=== PATIENT | female | born 1950 | race Caucasian/White ===

== ENCOUNTER 2022-12-05 07:19 | Inpatient (IN) ==
[2022-12-05] MEDS ORDERED: cefTRIAXone SODIUM 2,000 MG/70 ML BAG IV STA (07:32)
[2022-12-05] MEDS ORDERED: SODIUM CHLORIDE 0.9% 1000ML 2,000 ML IV ONE (07:32)
--- NOTE | 2022-12-05 07:37 | Emergency Department Note ---
I had nothing to do with this document. I opened it so that I could read the ED doc's note. Impression & Plan Sepsis, Complicated UTI (urinary tract infection), Pyelonephritis, Transaminitis, Hypoxia ED Provider Note NAME: VICENTE CHACON AGE: 72 SEX: F : 1950 ARRIVES VIA: Ambulance INFORMANT: Patient, weak ED PROVIDER(S): Scott Orozco DO CHIEF COMPLAINT: Not feeling well HPI: Patient is a 72-year-old female who presents to the ER for not feeling well. She notes her symptoms started early Friday morning with shaking chills. She notes that she feels very cold. She denies any headache or change in vision. She does not feel like she can keep warm. She denies chest pain or shortness of breath. No belly pain, nausea, or vomiting. She denies any dysuria, urgency, or frequency. No tick bites. No open wounds. She notes that she was slightly concerned that she may have carbon monoxide poisoning from Friday. Patient notes that she can barely get up as she is so weak. She has not checked her temperature. She has not been able to get to the shower and notes she has not bathed for couple days. PAST MEDICAL HISTORY:See Below PAST SURGICAL HISTORY:See Below FAMILY HISTORY:See Below SOCIAL HISTORY:See Below HOME MEDICATIONS:See Below ALLERGIES:See Below VITALS:See Below PHYSICAL EXAMINATION: GENERAL: Sitting up in bed, alert, well appearing, well nourished, no distress, non-toxic EYE EXAM: normal conjunctiva. OROPHARYNX:mucous membranes are moist NECK: supple, no nuchal rigidity, no adenopathy, non-tender LUNGS: Clear to auscultation. Normal chest wall mechanics HEART: no murmurs, S1 normal and S2 normal ABDOMEN: abdomen soft, non-tender, normo-active bowel sounds, no masses, no rebound or guarding. SKIN: no rashes and no bruising UPPER EXTREMITIES: upper extremities are grossly normal. LOWER EXTREMITIES: No pitting edema. NEURO EXAM: Normal sensorium, cranial nerves II-XII grossly intact, normal speech, no gross weakness of arms, no gross weakness of legs. MEDICAL DECISION MAKING: Patient is a 72-year-old female who presents ER for above-stated complaint. IV was established blood work was obtained. Labs show no significant leukocytosis. Mild anemia 11.1. INR unremarkable. BMP with mild hyponatremia. T. bili slightly up at 1.1 with a mild transaminitis in the 150s. Troponin was mildly elevated 18. UA was positive for nitrites leuks whites. Patient was given IV Rocephin as well as IV fluids 2 L. She was hypoxic in range remained on nasal cannula throughout her stay in the ER. Patient was updated bedside discussed with the hospitalist admitted for further work-up of her pyelonephritis likely causing her sepsis. Triage Nursing notes reviewed. Limited review of prior medical records performed Vital Signs: reviewed and remarkable for febrile and tachycardic Differential diagnosis: Differential diagnosis includes etiologies such as sepsis, UTI, pneumonia, m etabolic, electrolyte abnormalities, cardiac sources, intracerebral event, toxicologic, neurological, as well as others were entertained. ER treatment provided: See below Diagnostics interpreted by me include EKG and cardiac monitoring as listed below: -Cardiac Monitoring: An order was placed for continuous cardiac monitoring. The monitor shows a rate of 114 with sinus rhythm. -ECG: Sinus tachycardia rate of 110 Normal axis No PVCs QTc 441 -Laboratory studies:Interpreted by me as stated above in MDM and shown below. Imaging studies: Xrays: As interpreted by me: Portable AP upright 1 view of the chest shows atelectasis in the lower lungs CTs show: none Consultation(s): As described in [facility] Procedures:none Critical Care: I have personally spent 35 minutes of critical care time in the direct management of this patient. This includes bedside care, interpretation of diagnostic studies, and testing, discussion with consultants, patient, and family members, and other required patient management activities. This 35 minutes is in excess of all separately billable procedures. Past Med/Surg History Medical History (Updated 12/05/22 @ 13:09 by Scott Orozco DO) Diabetes mellitus, type II Dyslipidemia History of skin cancer HTN (hypertension) Surgical History (Updated 12/05/22 @ 10:24 by Miranda Coronado PA-C) H/O foot surgery H/O: hysterectomy Family History (Updated 12/05/22 @ 10:37 by Miranda Coronado PA-C) Other Diabetes Ovarian cancer Thyroid cancer Social History Smoking Status: Never smoker Hx Alcohol Use: No Hx Substance Use: No Feels Safe at Home: Yes Allergies Allergies Allergy/AdvReac Type Severity Reaction Status Date / Time No Known Allergies Allergy Unverified 12/05/22 11:44 Results & Data (ED) Vital Signs Vital Signs - 24 hr 12/05/22 07:33 12/05/22 07:20 12/05/22 08:03 Temperature 38.3 C H Temperature Source Oral Pulse Rate 110 H 110 H Pulse Rate [Apical] 108 H Respiratory Rate 14 18 Respiratory Effort / Characteristics Non-Labored Respiratory Depth Normal Blood Pressure 153/73 H Blood Pressure [Left Arm] Blood Pressure Mean 99 Blood Pressure Mean [Left Arm] Pulse Oximetry 91 88 L Oxygen Delivery Method Room Air Room Air Oxygen Flow Rate Sepsis Recent Fever Within 48 Hours Yes Sepsis New/Unexplained Change in Mental Status N/A Sepsis Action Taken by Nursing Physician Notified Oxygen Flow Rate - Titration Pulse Oximetry Post Tiitration 12/05/22 08:05 12/05/22 07:20 12/05/22 08:12 Temperature Temperature Source Pulse Rate 110 H Pulse Rate [Apical] 105 H Respiratory Rate 18 14 Respiratory Effort / Characteristics Respiratory Depth Blood Pressure Blood Pressure [Left Arm] Blood Pressure Mean Blood Pressure Mean [Left Arm] Pulse Oximetry 92 91 88 L Oxygen Delivery Method Nasal Cannula Room Air Nasal Cannula Oxygen Flow Rate Sepsis Recent Fever Within 48 Hours Sepsis New/Unexplained Change in Mental Status Sepsis Action Taken by Nursing Oxygen Flow Rate - Titration 2 Pulse Oximetry Post Tiitration 98 12/05/22 08:35 12/05/22 09:46 12/05/22 10:23 Temperature 38.0 C H Temperature Source Oral Pulse Rate Pulse Rate [Apical] 104 H 102 H 94 H Respiratory Rate 24 26 H 24 Respiratory Effort / Characteristics Non-Labored Non-Labored Respiratory Depth Normal Normal Blood Pressure Blood Pressure [Left Arm] 153/71 H 144/89 H 135/69 Blood Pressure Mean Blood Pressure Mean [Left Arm] 98 107 91 Pulse Oximetry 98 92 98 Oxygen Delivery Method Nasal Cannula Room Air Room Air Oxygen Flow Rate 2 Sepsis Recent Fever Within 48 Hours Sepsis New/Unexplained Change in Mental Status Sepsis Action Taken by Nursing Oxygen Flow Rate - Titration Pulse Oximetry Post Tiitration 12/05/22 11:15 12/05/22 12:00 Temperature 37.1 C Temperature Source Oral Pulse Rate Pulse Rate [Apical] 101 H 95 H Respiratory Rate 18 18 Respiratory Effort / Characteristics Non-Labored Non-Labored Respiratory Depth Normal Normal Blood Pressure Blood Pressure [Left Arm] 122/66 121/69 Blood Pressure Mean Blood Pressure Mean [Left Arm] 84 86 Pulse Oximetry 96 96 Oxygen Delivery Method Nasal Cannula Room Air Oxygen Flow Rate 2 Sepsis Recent Fever Within 48 Hours Sepsis New/Unexplained Change in Mental Status Sepsis Action Taken by Nursing Oxygen Flow Rate - Titration Pulse Oximetry Post Tiitration Laboratory Data 12/05/22 07:30 12/05/22 07:30 Lab Results 12/05/22 12/05/22 12/05/22 Range/Units 07:30 07:30 07:30 WBC 5.56 (4.8-10.8) K/ul RBC 3.66 L (4.20-5.40) M/uL Hgb 11.1 L (12.0-16.0) g/dl Hct 33.2 L (37.0-47.0) % MCV 90.7 (80.0-100.0) fL MCH 30.3 (25.0-34.0) pg MCHC 33.4 (32.0-36.0) g/dL RDW Std Deviation 41.7 (36.4-46.3) fL RDW Coeff of Rhianna 12.6 (11.5-14.5) % Plt Count 156 (130-400) K/uL MPV 9.6 (9.4-12.4) fL Immature Gran % (Auto) 0.5 % Neut % (Auto) 83.2 % Lymph % (Auto) 8.8 % [place] % (Auto) 6.7 % Eos % (Auto) 0.4 % Baso % (Auto) 0.4 % Neut # (Auto) 4.63 (1.40-6.50) K/uL Lymph # (Auto) 0.49 L (1.2-3.4) K/uL [place] # (Auto) 0.37 (0.11-0.59) K/uL Eos # (Auto) 0.02 (0-0.50) K/uL Baso # (Auto) 0.02 (0-0.2) K/uL Immature Gran # (Auto) 0.03 (0.01-0.20) K/uL PT 10.4 (9.0-12.0) Seconds INR 0.9 (0.9-1.1) Sodium 134 L (136-145) mmol/L Potassium 3.6 (3.5-5.1) mmol/L Chloride 96 L (98-107) mmol/L Carbon Dioxide 26 (21-32) mmol/L Anion Gap 12 H (3-11) BUN 24 H (6-23) mg/dl Creatinine 1.20 (0.6-1.2) mg/dl Est Cr Clr Drug Dosing 47.2 ml/min Est GFR ( Amer) 52.3 ml/min Est GFR (Non-Af Amer) 45.1 ml/min BUN/Creatinine Ratio 20.0 (10-20) Glucose 179 H (70-99(Fasting)) mg/dl Lactate (0.4-2.0) mmol/L Calcium 9.1 (8.6-10.3) mg/dl Magnesium 2.0 (1.7-2.4) mg/dl Iron (35-150) mcg/dl Total Bilirubin 1.1 H (0.2-1.0) mg/dl Direct Bilirubin 0.6 H (0-0.2) mg/dl AST 158 H (13-39) U/L ALT 190 H (7-52) U/L Alkaline Phosphatase 185 H (34-104) U/L Troponin I High Sens 18.2 H (0-14) pg/ml Total Protein 7.3 (6.0-8.3) gm/dl Albumin 3.6 (3.4-5.0) gm/dl Procalcitonin (0-0.5) ng/ml Urine Color Urine Appearance (Clear) Urine pH (4.5-7.5) Ur Specific [place] (1.000-1.030) Urine Protein (Negative) Urine Glucose (UA) (Negative) Urine Ketones (Negative) Urine Blood (Negative) Urine Nitrite (Negative) Urine Bilirubin (Negative) Urine Urobilinogen (Negative) Ur Leukocyte Esterase (Negative) Urine WBC (Auto) (0-5) /hpf Urine RBC (Auto) (0-4) /hpf U Hyaline Cast (Auto) (0-5) /lpf U Epithel Cells (Auto) (0-5) /lpf Urine Bacteria (Auto) (Negative) Granular Casts (0) /lpf Anaplasma Smear Babesia Smear Lyme Disease IgG Ab (Negative) Lyme Disease IgM Ab (Negative) SARS-CoV-2 (PCR) (Negative) Influenza Type A (PCR) (Neg) Influenza Type B (PCR) (Neg) RSV (RT-PCR) (Neg) 12/05/22 12/05/22 12/05/22 Range/Units 07:30 07:30 07:30 WBC (4.8-10.8) K/ul RBC (4.20-5.40) M/uL Hgb (12.0-16.0) g/dl Hct (37.0-47.0) % MCV (80.0-100.0) fL MCH (25.0-34.0) pg MCHC (32.0-36.0) g/dL RDW Std Deviation (36.4-46.3) fL RDW Coeff of Rhianna (11.5-14.5) % Plt Count (130-400) K/uL MPV (9.4-12.4) fL Immature Gran % (Auto) % Neut % (Auto) % Lymph % (Auto) % [place] % (Auto) % Eos % (Auto) % Baso % (Auto) % Neut # (Auto) (1.40-6.50) K/uL Lymph # (Auto) (1.2-3.4) K/uL [place] # (Auto) (0.11-0.59) K/uL Eos # (Auto) (0-0.50) K/uL Baso # (Auto) (0-0.2) K/uL Immature Gran # (Auto) (0.01-0.20) K/uL PT (9.0-12.0) Seconds INR (0.9-1.1) Sodium (136-145) mmol/L Potassium (3.5-5.1) mmol/L Chloride (98-107) mmol/L Carbon Dioxide (21-32) mmol/L Anion Gap (3-11) BUN (6-23) mg/dl Creatinine (0.6-1.2) mg/dl Est Cr Clr Drug Dosing ml/min Est GFR ( Amer) ml/min Est GFR (Non-Af Amer) ml/min BUN/Creatinine Ratio (10-20) Glucose (70-99(Fasting)) mg/dl Lactate 2.4 H* (0.4-2.0) mmol/L Calcium (8.6-10.3) mg/dl Magnesium (1.7-2.4) mg/dl Iron (35-150) mcg/dl Total Bilirubin (0.2-1.0) mg/dl Direct Bilirubin (0-0.2) mg/dl AST (13-39) U/L ALT (7-52) U/L Alkaline Phosphatase (34-104) U/L Troponin I High Sens (0-14) pg/ml Total Protein (6.0-8.3) gm/dl Albumin (3.4-5.0) gm/dl Procalcitonin 3.92 H (0-0.5) ng/ml Urine Color Urine Appearance (Clear) Urine pH (4.5-7.5) Ur Specific [place] (1.000-1.030) Urine Protein (Negative) Urine Glucose (UA) (Negative) Urine Ketones (Negative) Urine Blood (Negative) Urine Nitrite (Negative) Urine Bilirubin (Negative) Urine Urobilinogen (Negative) Ur Leukocyte Esterase (Negative) Urine WBC (Auto) (0-5) /hpf Urine RBC (Auto) (0-4) /hpf U Hyaline Cast (Auto) (0-5) /lpf U Epithel Cells (Auto) (0-5) /lpf Urine Bacteria (Auto) (Negative) Granular Casts (0) /lpf Anaplasma Smear Babesia Smear Lyme Disease IgG Ab Negative (Negative) Lyme Disease IgM Ab Negative (Negative) SARS-CoV-2 (PCR) (Negative) Influenza Type A (PCR) (Neg) Influenza Type B (PCR) (Neg) RSV (RT-PCR) (Neg) 12/05/22 12/05/22 12/05/22 Range/Units 07:30 07:43 09:49 WBC (4.8-10.8) K/ul RBC (4.20-5.40) M/uL Hgb (12.0-16.0) g/dl Hct (37.0-47.0) % MCV (80.0-100.0) fL MCH (25.0-34.0) pg MCHC (32.0-36.0) g/dL RDW Std Deviation (36.4-46.3) fL RDW Coeff of Rhianna (11.5-14.5) % Plt Count (130-400) K/uL MPV (9.4-12.4) fL Immature Gran % (Auto) % Neut % (Auto) % Lymph % (Auto) % [place] % (Auto) % Eos % (Auto) % Baso % (Auto) % Neut # (Auto) (1.40-6.50) K/uL Lymph # (Auto) (1.2-3.4) K/uL [place] # (Auto) (0.11-0.59) K/uL Eos # (Auto) (0-0.50) K/uL Baso # (Auto) (0-0.2) K/uL Immature Gran # (Auto) (0.01-0.20) K/uL PT (9.0-12.0) Seconds INR (0.9-1.1) Sodium (136-145) mmol/L Potassium (3.5-5.1) mmol/L Chloride (98-107) mmol/L Carbon Dioxide (21-32) mmol/L Anion Gap (3-11) BUN (6-23) mg/dl Creatinine (0.6-1.2) mg/dl Est Cr Clr Drug Dosing ml/min Est GFR ( Amer) ml/min Est GFR (Non-Af Amer) ml/min BUN/Creatinine Ratio (10-20) Glucose (70-99(Fasting)) mg/dl Lactate (0.4-2.0) mmol/L Calcium (8.6-10.3) mg/dl Magnesium (1.7-2.4) mg/dl Iron (35-150) mcg/dl Total Bilirubin (0.2-1.0) mg/dl Direct Bilirubin (0-0.2) mg/dl AST (13-39) U/L ALT (7-52) U/L Alkaline Phosphatase (34-104) U/L Troponin I High Sens (0-14) pg/ml Total Protein (6.0-8.3) gm/dl Albumin (3.4-5.0) gm/dl Procalcitonin (0-0.5) ng/ml Urine Color Dark Yellow Urine Appearance Turbid A (Clear) Urine pH 5.5 (4.5-7.5) Ur Specific [place] 1.022 (1.000-1.030) Urine Protein 3+ H (Negative) Urine Glucose (UA) Negative (Negative) Urine Ketones 1+ H (Negative) Urine Blood 2+ H (Negative) Urine Nitrite Positive A (Negative) Urine Bilirubin Negative (Negative) Urine Urobilinogen Negative (Negative) Ur Leukocyte Esterase 1+ H (Negative) Urine WBC (Auto) >30 H (0-5) /hpf Urine RBC (Auto) 10-30 H (0-4) /hpf U Hyaline Cast (Auto) 1-5 (0-5) /lpf U Epithel Cells (Auto) >30 H (0-5) /lpf Urine Bacteria (Auto) 2+ H (Negative) Granular Casts 1-5 H (0) /lpf Anaplasma Smear See Comment Babesia Smear See Comment Lyme Disease IgG Ab (Negative) Lyme Disease IgM Ab (Negative) SARS-CoV-2 (PCR) NEGATIVE (Negative) Influenza Type A (PCR) Negative (Neg) Influenza Type B (PCR) Negative (Neg) RSV (RT-PCR) Negative (Neg) 12/05/22 12/05/22 Range/Units 10:03 11:09 WBC (4.8-10.8) K/ul RBC (4.20-5.40) M/uL Hgb (12.0-16.0) g/dl Hct (37.0-47.0) % MCV (80.0-100.0) fL MCH (25.0-34.0) pg MCHC (32.0-36.0) g/dL RDW Std Deviation (36.4-46.3) fL RDW Coeff of Rhianna (11.5-14.5) % Plt Count (130-400) K/uL MPV (9.4-12.4) fL Immature Gran % (Auto) % Neut % (Auto) % Lymph % (Auto) % [place] % (Auto) % Eos % (Auto) % Baso % (Auto) % Neut # (Auto) (1.40-6.50) K/uL Lymph # (Auto) (1.2-3.4) K/uL [place] # (Auto) (0.11-0.59) K/uL Eos # (Auto) (0-0.50) K/uL Baso # (Auto) (0-0.2) K/uL Immature Gran # (Auto) (0.01-0.20) K/uL PT (9.0-12.0) Seconds INR (0.9-1.1) Sodium (136-145) mmol/L Potassium (3.5-5.1) mmol/L Chloride (98-107) mmol/L Carbon Dioxide (21-32) mmol/L Anion Gap (3-11) BUN (6-23) mg/dl Creatinine (0.6-1.2) mg/dl Est Cr Clr Drug Dosing ml/min Est GFR ( Amer) ml/min Est GFR (Non-Af Amer) ml/min BUN/Creatinine Ratio (10-20) Glucose (70-99(Fasting)) mg/dl Lactate 1.4 (0.4-2.0) mmol/L Calcium (8.6-10.3) mg/dl Magnesium (1.7-2.4) mg/dl Iron 13 L (35-150) mcg/dl Total Bilirubin (0.2-1.0) mg/dl Direct Bilirubin (0-0.2) mg/dl AST (13-39) U/L ALT (7-52) U/L Alkaline Phosphatase (34-104) U/L Troponin I High Sens (0-14) pg/ml Total Protein (6.0-8.3) gm/dl Albumin (3.4-5.0) gm/dl Procalcitonin (0-0.5) ng/ml Urine Color Urine Appearance (Clear) Urine pH (4.5-7.5) Ur Specific [place] (1.000-1.030) Urine Protein (Negative) Urine Glucose (UA) (Negative) Urine Ketones (Negative) Urine Blood (Negative) Urine Nitrite (Negative) Urine Bilirubin (Negative) Urine Urobilinogen (Negative) Ur Leukocyte Esterase (Negative) Urine WBC (Auto) (0-5) /hpf Urine RBC (Auto) (0-4) /hpf U Hyaline Cast (Auto) (0-5) /lpf U Epithel Cells (Auto) (0-5) /lpf Urine Bacteria (Auto) (Negative) Granular Casts (0) /lpf Anaplasma Smear Babesia Smear Lyme Disease IgG Ab (Negative) Lyme Disease IgM Ab (Negative) SARS-CoV-2 (PCR) (Negative) Influenza Type A (PCR) (Neg) Influenza Type B (PCR) (Neg) RSV (RT-PCR) (Neg) Administered Medications Sodium Chloride (Nss 1000ml) 1,000 mls @ 85 mls/hr IV .[id number] STA Stop: 12/05/22 23:04 Last Admin: 12/05/22 11:42 Dose: 85 mls/hr Documented By: MARGARITA Discontinued Medications Acetaminophen (Acetaminophen 325 Mg Tab) 650 mg PO NOW STA Stop: 12/05/22 08:31 Last Admin: 12/05/22 08:36 Dose: 650 mg Documented By: EILEEN Sodium Chloride (Nss 1000ml) 2,000 mls @ 999 mls/hr IV .[id number] ONE Stop: 12/05/22 09:32 Last Infusion: 12/05/22 10:24 Dose: 0 mls/hr Documented By: Admin: 12/05/22 08:04 Dose: 999 mls/hr Documented By: MARGARITA Ceftriaxone Sodium (Rocephin) 2,000 mg in 70 mls @ 140 mls/hr IV NOW STA Stop: 12/05/22 08:01 Last Infusion: 12/05/22 08:34 Dose: 0 mls/hr Documented By: Admin: 12/05/22 08:04 Dose: 140 mls/hr Documented By: MARGARITA Ioversol (Optiray 320 100ml) 95 ml IV ONCE ONE Stop: 12/05/22 09:29 Last Admin: 12/05/22 09:28 Dose: 95 ml Documented By: STEPHANIE Miscellaneous Information (Patient's Allergy Info Needs Entered) 1 each N/A ONE STA Stop: 12/05/22 11:21 Last Admin: 12/05/22 11:42 Dose: 1 each Documented By: MARGARITA Imaging Data Radiologist's Impression: Chest X-Ray 12/05/22 07:32 XR chest 1V portable HISTORY: 72 years-old Female Sepsis acute sepsis COMPARISON: None TECHNIQUE: AP view of the chest FINDINGS: Cardiac silhouette is upper limits of normal in size. Mild right hemidiaphragmatic elevation. Mild subsegmental bibasilar densities. No pneumothorax, pleural effusion or overt pulmonary edema. Mild rotator cuff calcific tendinosis of the right shoulder. Bones appear grossly intact. IMPRESSION: Mild right hemidiaphragmatic elevation with bibasilar densities favoring atelectasis. ACT 112: Negative or not required by law. The above report was generated using voice recognition software. It may contain grammatical, syntax or spelling errors. Electronically signed by: Manas Loving M.D. 12/05/2022 8:01 AM Abdomen/Pelvis CT 12/05/22 08:31 CT SCAN OF THE ABDOMEN AND PELVIS WITH IV CONTRAST CLINICAL HISTORY: Elevated hepatic transaminases and elevated bilirubin. Generalized weakness. COMPARISON STUDY: No priors. TECHNIQUE: Following the IV administration of 95 cc of Optiray 320, CT scan of the abdomen and pelvis is performed from the lung bases to the proximal femora. Images are reviewed in the axial, sagittal, and coronal planes. IV contrast was administered without complication. A dose lowering technique was utilized adhering to the principles of ALARA. CT DOSE: 1429.40 mGy.cm FINDINGS: Lung bases: The heart is normal in size and without pericardial effusion. The coronary arteries are densely calcified. There is a tiny hiatal hernia. A 1.9 cm lobular pulmonary nodule is seen in the left lower lobe on image #36. The lung bases are otherwise clear noting bibasilar scarring/atelectasis. Liver: The contrast-enhanced liver is normal in size, contour, and attenuation. There is no intrahepatic biliary ductal dilatation. The hepatic veins and portal veins are patent. A bilobed cyst in the right lobe measures up to 2 cm. Gallbladder: Unremarkable. Spleen: Normal in size and attenuation. Pancreas: Unremarkable. Adrenal glands: Unremarkable. Kidneys: The contrast enhanced kidneys are normal in size and without hydronephrosis. The left kidney is edematous with perinephric stranding and fluid. Urothelial thickening and enhancement is seen involving the left kidney and left ureter, and the appearance favors ascending infection/pyelonephritis. No obstructing ureteral stone is seen. There is heterogeneous enhancement of the left kidney. The right kidney enhances normally. Abdominal vasculature: The abdominal aorta is normal in course and caliber noting moderate to advanced atherosclerotic calcification. Bowel: There is moderate colonic fecal retention. No bowel obstruction is seen. The appendix is well-visualized and normal. Peritoneum: There is no intraperitoneal free air or abdominal ascites. Lymphadenopathy: None. Pelvic viscera: The bladder is decompressed and not well evaluated. The uterus is surgically absent. No adnexal lesion is seen. Skeletal structures: The skeletal structures are osteopenic. There is moderate lumbosacral spondylosis. No lytic or blastic lesions are seen. IMPRESSION: 1. Findings favor left-sided ascending urinary tract infection/pyelonephritis. Correlate with clinical findings and urinalysis. 2. There is a 1.9 cm lobular pulmonary nodule in the left lower lobe. This is pathologically indeterminant, and may represent a neoplasm such as carcinoid tumor. Pulmonology follow-up is recommended, as is a dedicated chest CT in 3 months time for reassessment and full evaluation of the thorax. 3. The liver is normal in size and attenuation. 4. Advanced coronary artery calcification. 5. Additional findings as above. ACT 112: Negative or not required by law. Electronically signed by: Devin Peterson M.D. 12/05/2022 9:39 AM Discharge Plan Visit Data Chief Complaint: Weakness ED Provider: Scott Orozco Discharge Problem: Sepsis, Complicated UTI (urinary tract infection), Pyelonephritis, Transaminitis, Hypoxia Forms Stand Alone Forms: My [facility] Referrals Referrals: PCP,NO [Physician] -
--- NOTE | 2022-12-05 08:02 | XRay Report ---
XR chest 1V portable HISTORY: 72 years-old Female Sepsis acute sepsis COMPARISON: None TECHNIQUE: AP view of the chest FINDINGS: Cardiac silhouette is upper limits of normal in size. Mild right hemidiaphragmatic elevation. Mild valadez bsegmental bibasilar densities. No pneumothorax, pleural effusion or overt pulmonary edema. Mild rota tor cuff calcific tendinosis of the right shoulder. Bones appear grossly intact. IMPRESSION: Mild right hemidiaphragmatic elevation with bibasilar densities favoring atelectasis. ACT 112: Negative or not required by law. The above report was generated using voice recognition software. It may contain grammatical, syntax o r spelling errors. Electronically signed by: Manas Loving M.D. 12/05/2022 8:01 AM
[2022-12-05 08:03] LABS: Basophils # (auto) 0.02 K/uL (0-0.2); Basophils % (auto) 0.4 %; Eosinophils # (auto) 0.02 K/uL (0-0.50); Eosinophils % (auto) 0.4 %; Hematocrit (blood only) 33.2 % (37.0-47.0); Hemoglobin 11.1 g/dl (12.0-16.0); Immature Granulocytes # (auto) 0.03 K/uL (0.01-0.20); Immature Granulocytes % (auto) 0.5 %; Lymphocytes # (auto) 0.49 K/uL (1.2-3.4); Lymphocytes % (auto) 8.8 %; Mean Corpuscular Hemoglobin 30.3 pg (25.0-34.0); Mean Corpuscular Hgb Conc 33.4 g/dL (32.0-36.0); Mean Corpuscular Volume 90.7 fL (80.0-100.0); Mean Platelet Volume 9.6 fL (9.4-12.4); Monocytes # (auto) 0.37 K/uL (0.11-0.59); Monocytes % (auto) 6.7 %; Neutrophils # (auto) 4.63 K/uL (1.40-6.50); Neutrophils % (auto) 83.2 %; Platelet Count 156 K/uL (130-400); RDW Coefficient of Variation 12.6 % (11.5-14.5); RDW Standard Deviation 41.7 fL (36.4-46.3); Red Blood Count 3.66 M/uL (4.20-5.40); White Blood Count 5.56 K/ul (4.8-10.8)
[2022-12-05 08:20] LABS: Albumin Level 3.6 gm/dl (3.4-5.0); Bilirubin Direct 0.6 mg/dl (0-0.2); Bilirubin,Total 1.1 mg/dl (0.2-1.0); Calcium 9.1 mg/dl (8.6-10.3); Creatinine Clr Calc Pharmacy 47.2 ml/min; Est GFR (African American) 52.3 ml/min; Est GFR (Non-African American) 45.1 ml/min; Potassium 3.6 mmol/L (3.5-5.1); Total Protein 7.3 gm/dl (6.0-8.3)
[2022-12-05 08:27] LABS: Troponin I High Sensitivity 18.2 pg/ml (0-14)
[2022-12-05] MEDS ORDERED: ACETAMINOPHEN 325 MG TAB PO STA (08:30)
[2022-12-05 08:36] LABS: Influenza A virus by PCR Negative (Neg); Influenza B virus by PCR Negative (Neg); RSV by PCR Negative (Neg); SARS CoV2 RNA(COVID-19) Ceph NEGATIVE (Negative)
[2022-12-05 08:36] LABS: INR 0.9 (0.9-1.1); Prothrombin Time 10.4 Seconds (9.0-12.0)
[2022-12-05 08:44] LABS: Lyme Ab IgG w/WB Rflx Negative (Negative); Lyme Ab IgM w/WB Rflx Negative (Negative)
[2022-12-05] MEDS ORDERED: OPTIRAY 320 100ml IV ONE (09:28)
--- NOTE | 2022-12-05 09:42 | CT Scan Report ---
CT SCAN OF THE ABDOMEN AND PELVIS WITH IV CONTRAST CLINICAL HISTORY: Elevated hepatic transaminases and elevated bilirubin. Generalized weakness. COMPARISON STUDY: No priors. TECHNIQUE: Following the IV administration of 95 cc of Optiray 320, CT scan of the abdomen and pelvi s is performed from the lung bases to the proximal femora. Images are reviewed in the axial, sagittal , and coronal planes. IV contrast was administered without complication. A dose lowering technique wa s utilized adhering to the principles of ALARA. CT DOSE: 1429.40 mGy.cm FINDINGS: Lung bases: The heart is normal in size and without pericardial effusion. The coronary arteries are d ensely calcified. There is a tiny hiatal hernia. A 1.9 cm lobular pulmonary nodule is seen in the lef t lower lobe on image #36. The lung bases are otherwise clear noting bibasilar scarring/atelectasis. Liver: The contrast-enhanced liver is normal in size, contour, and attenuation. There is no intrahepa tic biliary ductal dilatation. The hepatic veins and portal veins are patent. A bilobed cyst in the r ight lobe measures up to 2 cm. Gallbladder: Unremarkable. Spleen: Normal in size and attenuation. Pancreas: Unremarkable. Adrenal glands: Unremarkable. Kidneys: The contrast enhanced kidneys are normal in size and without hydronephrosis. The left kidney is edematous with perinephric stranding and fluid. Urothelial thickening and enhancement is seen inv olving the left kidney and left ureter, and the appearance favors ascending infection/pyelonephritis. No obstructing ureteral stone is seen. There is heterogeneous enhancement of the left kidney. The ri ght kidney enhances normally. Abdominal vasculature: The abdominal aorta is normal in course and caliber noting moderate to advance d atherosclerotic calcification. Bowel: There is moderate colonic fecal retention. No bowel obstruction is seen. The appendix is well -visualized and normal. Peritoneum: There is no intraperitoneal free air or abdominal ascites. Lymphadenopathy: None. Pelvic viscera: The bladder is decompressed and not well evaluated. The uterus is surgically absent. No adnexal lesion is seen. Skeletal structures: The skeletal structures are osteopenic. There is moderate lumbosacral spondylosi s. No lytic or blastic lesions are seen. IMPRESSION: 1. Findings favor left-sided ascending urinary tract infection/pyelonephritis. Correlate with clinica l findings and urinalysis. 2. There is a 1.9 cm lobular pulmonary nodule in the left lower lobe. This is pathologically indeterm inant, and may represent a neoplasm such as carcinoid tumor. Pulmonology follow-up is recommended, as is a dedicated chest CT in 3 months time for reassessment and full evaluation of the thorax. 3. The liver is normal in size and attenuation. 4. Advanced coronary artery calcification. 5. Additional findings as above. ACT 112: Negative or not required by law. Electronically signed by: Devin Peterson M.D. 12/05/2022 9:39 AM
[2022-12-05 10:18] LABS: Appearance Urine Turbid (Clear); Bacteria Urine Automated 2+ (Negative); Bilirubin Urine Negative (Negative); Blood Urine 2+ (Negative); Color Urine Dark Yellow; Epithelial Cell Urine Auto >30 /lpf (0-5); Glucose Urine UA Negative (Negative); Ketones Urine 1+ (Negative); Leukocyte Esterase Urine 1+ (Negative); Nitrite Urine Positive (Negative); Protein Urine 3+ (Negative); Specific Gravity Urine 1.022 (1.000-1.030); Urobilinogen Urine Negative (Negative); WBC Urine Automated >30 /hpf (0-5); pH Urine 5.5 (4.5-7.5)
--- NOTE | 2022-12-05 10:29 | History & Physical Report ---
Date of Service December 05, 2022 Assessment & Plan (1) Sepsis: (2) Complicated UTI (urinary tract infection): (3) HTN (hypertension): (4) Diabetes mellitus, type II: (5) Dyslipidemia: Plan This is a 72-year-old female with PMH of type 2 diabetes, dyslipidemia, hypertension and other medical problems listed below who presents with myalgias and chills x3 days and was found to have sepsis 2/2 complicated UTI. Sepsis Complicated UTI Myalgias & chills x 3 days T: 38, HR: 110. Lactate: 2.4 -> 1.4, procal: 3.92 Received 2L NSS in ED, will continue maintenance for 1 additional L UA abnormal, urine culture pending CT abd/pelvis with left-sided ascending urinary tract infection/pyelonephritis Abnormal LFTs noted but liver is normal in size, no acute abnormalities on CT a/p Lyme serology negative Adding anaplasma DNA and smear, acute hepatitis panel, iron, alpha 1 antitrypsin deficiency Started on Rocephin, continue fluids Chest pain Atypical in description, initial HS troponin 18. Will monitor on tele, trend troponin. Continuing home aspirin, statin HTN Normotensive. Continue valsartan. Will hold Hctz DM II A1c 6.7 in Jul, will repeat in AM Hold home oral agents SSI while in-patient BSG AC HS HLD Continue statin DVT Ppx: SQ lovenox Code status: DNR/DNI PCP: Benjy Dispo: Admitted to PCU Patient seen in collaboration with Dr. Ramirez. Please see addendum. I spent a total of 75 minutes coordinating, documenting, and providing care for this patient excluding time spent in the performance of separately billed services. History of Present Illness Chief Complaint: Myalgias Primary Care Provider: Kaitlynn Burleson MD This is a 72-year-old female with PMH of type 2 diabetes, dyslipidemia, hypertension and other medical problems listed below who presents with myalgias and chills x3 days. Continued to feel poorly over the past few days and her son brought her into ED. Endorsing some discomfort in center of chest that comes and goes and is a 4/10. Associated shortness of breath. No recent illness with congestion or rhinorrhea. Dull headache. Poor appetite but increased thirst. No known bug bites or rashes. No known history of liver disease. Denies any dizziness, nausea, vomiting, abdominal pain, dysuria, increased frequency or urgency. No diarrhea or constipation. Allergies Allergy/AdvReac Type Severity Reaction Status Date / Time No Known Allergies Allergy Unverified 12/05/22 11:44 Past Med/Surg History Medical History (Updated 12/05/22 @ 11:03 by Miranda Coronado PA-C) Diabetes mellitus, type II Dyslipidemia History of skin cancer HTN (hypertension) Surgical History (Updated 12/05/22 @ 10:24 by Miranda Coronado PA-C) H/O foot surgery H/O: hysterectomy Family History (Updated 12/05/22 @ 10:37 by Miranda Coronado PA-C) Other Diabetes Ovarian cancer Thyroid cancer Social History Smoking Status: Never smoker Hx Alcohol Use: No Hx Substance Use: No Feels Safe at Home: Yes Review of Systems Review of Systems: At least ten systems reviewed and negative except as noted in the HPI. Physical Exam Physical Exam: Please see Dr. Ramirez's addendum for physical exam. Results & Data Results & Data Vital Signs (Past 12 Hours) Vital Signs Temp Pulse Pulse Resp BP BP Pulse Ox 12/05/22 09:46 38.0 C H 102 H 26 H 144/89 H 92 12/05/22 08:35 104 H 24 153/71 H 98 12/05/22 08:12 88 L 12/05/22 07:20 110 H 14 91 12/05/22 08:05 105 H 18 92 12/05/22 08:03 108 H 18 88 L 12/05/22 07:20 38.3 C H 110 H 14 153/73 H 91 12/05/22 07:33 110 H O2 Del Method O2 Flow Rate 12/05/22 09:46 Room Air 12/05/22 08:35 Nasal Cannula 2 12/05/22 08:12 Nasal Cannula 12/05/22 07:20 Room Air 12/05/22 08:05 Nasal Cannula 12/05/22 08:03 Room Air 12/05/22 07:20 Room Air 12/05/22 07:33 Laboratory Results Short CBC 12/05/22 Range/Units 07:30 WBC 5.56 (4.8-10.8) K/ul Hgb 11.1 L (12.0-16.0) g/dl Hct 33.2 L (37.0-47.0) % Plt Count 156 (130-400) K/uL BMP 12/05/22 07:30 Sodium 134 L Potassium 3.6 Chloride 96 L Carbon Dioxide 26 BUN 24 H Creatinine 1.20 Glucose 179 H Calcium 9.1 Liver Function 12/05/22 Range/Units 07:30 Total Bilirubin 1.1 H (0.2-1.0) mg/dl Direct Bilirubin 0.6 H (0-0.2) mg/dl AST 158 H (13-39) U/L ALT 190 H (7-52) U/L Alkaline Phosphatase 185 H (34-104) U/L Albumin 3.6 (3.4-5.0) gm/dl Urine 12/05/22 Range/Units 09:49 Urine Color Dark Yellow Urine Appearance Turbid A (Clear) Urine pH 5.5 (4.5-7.5) Ur Specific [place] 1.022 (1.000-1.030) Urine Protein 3+ H (Negative) Urine Glucose (UA) Negative (Negative) Diagnostic Findings Chest X-Ray 12/05/22 07:32 XR chest 1V portable HISTORY: 72 years-old Female Sepsis acute sepsis COMPARISON: None TECHNIQUE: AP view of the chest FINDINGS: Cardiac silhouette is upper limits of normal in size. Mild right hemidiaphragmatic elevation. Mild subsegmental bibasilar densities. No pneumothorax, pleural effusion or overt pulmonary edema. Mild rotator cuff calcific tendinosis of the right shoulder. Bones appear grossly intact. IMPRESSION: Mild right hemidiaphragmatic elevation with bibasilar densities favoring atelectasis. ACT 112: Negative or not required by law. The above report was generated using voice recognition software. It may contain grammatical, syntax or spelling errors. Electronically signed by: Manas Loving M.D. 12/05/2022 8:01 AM Abdomen/Pelvis CT 12/05/22 08:31 CT SCAN OF THE ABDOMEN AND PELVIS WITH IV CONTRAST CLINICAL HISTORY: Elevated hepatic transaminases and elevated bilirubin. Generalized weakness. COMPARISON STUDY: No priors. TECHNIQUE: Following the IV administration of 95 cc of Optiray 320, CT scan of the abdomen and pelvis is performed from the lung bases to the proximal femora. Images are reviewed in the axial, sagittal, and coronal planes. IV contrast was administered without complication. A dose lowering technique was utilized adhering to the principles of ALARA. CT DOSE: 1429.40 mGy.cm FINDINGS: Lung bases: The heart is normal in size and without pericardial effusion. The coronary arteries are densely calcified. There is a tiny hiatal hernia. A 1.9 cm lobular pulmonary nodule is seen in the left lower lobe on image #36. The lung bases are otherwise clear noting bibasilar scarring/atelectasis. Liver: The contrast-enhanced liver is normal in size, contour, and attenuation. There is no intrahepatic biliary ductal dilatation. The hepatic veins and portal veins are patent. A bilobed cyst in the right lobe measures up to 2 cm. Gallbladder: Unremarkable. Spleen: Normal in size and attenuation. Pancreas: Unremarkable. Adrenal glands: Unremarkable. Kidneys: The contrast enhanced kidneys are normal in size and without hydronephrosis. The left kidney is edematous with perinephric stranding and fluid. Urothelial thickening and enhancement is seen involving the left kidney and left ureter, and the appearance favors ascending infection/pyelonephritis. No obstructing ureteral stone is seen. There is heterogeneous enhancement of the left kidney. The right kidney enhances normally. Abdominal vasculature: The abdominal aorta is normal in course and caliber noting moderate to advanced atherosclerotic calcification. Bowel: There is moderate colonic fecal retention. No bowel obstruction is seen. The appendix is well-visualized and normal. Peritoneum: There is no intraperitoneal free air or abdominal ascites. Lymphadenopathy: None. Pelvic viscera: The bladder is decompressed and not well evaluated. The uterus is surgically absent. No adnexal lesion is seen. Skeletal structures: The skeletal structures are osteopenic. There is moderate lumbosacral spondylosis. No lytic or blastic lesions are seen. IMPRESSION: 1. Findings favor left-sided ascending urinary tract infection/pyelonephritis. Correlate with clinical findings and urinalysis. 2. There is a 1.9 cm lobular pulmonary nodule in the left lower lobe. This is pathologically indeterminant, and may represent a neoplasm such as carcinoid tumor. Pulmonology follow-up is recommended, as is a dedicated chest CT in 3 months time for reassessment and full evaluation of the thorax. 3. The liver is normal in size and attenuation. 4. Advanced coronary artery calcification. 5. Additional findings as above. ACT 112: Negative or not required by law. Electronically signed by: Devin Peterson M.D. 12/05/2022 9:39 AM Medications Administered Sodium Chloride (Nss 1000ml) 1,000 mls @ 85 mls/hr IV .[id number] STA Stop: 12/05/22 23:04 Last Admin: 12/05/22 11:42 Dose: 85 mls/hr Documented By: JS Supervising Physician Co-Signing Physician Notes Ms. Herrera is a 72 year old female with pmhx (per chart, confirmed with pt and son) of NIDDM-II (associated with HTN and HLP), thyroid nodule, IBS, colon polyp, skin ca, and DISC DIS lumbar. She presented d/t 3 days of fatigue, malaise, myalgias, and rigors. She has a poor appetite and has been taking in minimal po. Here she is found to have sepsis d/t pyelonephritis. Pt seen and examined at bedside. She also endorses chest pressure at worst 4/10 without any clear inciting, exacerbating, or alleviating factors. She denies n/v, abdominal pain, dysuria, urinary urgency or frequency, low back pain, diarrhea, and incontinence. She denies any recent insect bites or rashes. She has no other complaints. # sepsis: SIRS criteria HR > 90, RR > 20, T > 38 C. Associated with elevated LFTs and lactate > 2 making this severe sepsis d/t urinary source based on UA and CT A/P read as pyelonephritis, no hepatobiliary abnormalities continue Ceftriaxone 12/05 - present continue IVF, supportive care # VT: While in the ED she had a 7 beat run of VT. no hx of arrhythmia K and Mg wnl, will check a TSH, cardiology consulted, f/u serial trop # normocytic normochromic anemia: Fe low, supplement Fe given age check FOB f/u folate and B12 # hyponatremia/chloremia: mild likely d/t poor intake f/u am labs continue NS until taking in better oral intake # elevated LFTs: likely d/t sepsis no abnormality on CT A/P to explain this pt reports a hepatic cyst, no known hx of elevated LFTs previously f/u viral Hep, Fe. Consider checking [id number] and ceruloplasmin # NIDDM-II: hold home regimen until taking adequate po ISS for now # HTN: hold hctz while receiving IVF, continue Losartan # HLP: continue statin therapy, no indication to check a lipid panel Physical Exam Gen: NAD, well nourished and well developed, clearly feels unwell Head: NC AT Eyes: no icterus, or conjunctival injection Mouth: MMM Nose: normal, nares patent Neck: supple, trachea midline CV: RRR S1 S2 Pulm: CTA, diminished (poor effort) GI/abd: +BS, soft, NT, ND, no guarding : no iraheta Ext: no edema, periphral pulses intact MSK: normal bulk and tone Neuro: lethargic, moving all 4 extremities symmetrically Psych: normal mood and affect Skin: visible skin is warm, dry, and without rash. Pt was not fully undressed for exam Rest per attested note above
[2022-12-05] MEDS ORDERED: SODIUM CHLORIDE 0.9% 1000ML 1,000 ML IV STA (11:19)
[2022-12-05] MEDS ORDERED: Patient's ALLERGY Info needs ENTERED STA (11:20)
--- NOTE | 2022-12-05 13:55 | Electrocardiogram Report ---
Test Reason : Blood Pressure : / mmHG Vent. Rate : 110 BPM Atrial Rate : 110 BPM P-R Int : 186 ms QRS Dur : 070 ms QT Int : 326 ms P-R-T Axes : 061 028 019 degrees QTc Int : 441 ms Sinus tachycardia Low voltage QRS Borderline ECG No previous ECGs available Confirmed by Yogi Tapia ([id number]) on 12/05/2022 1:55:10 PM Referred By: REFERRED SELF Confirmed By:Yogi Tapia
[2022-12-05] MEDS ORDERED: CETIRIZINE HCL 10 MG TABLET PO PRN (14:10)
[2022-12-05] MEDS ORDERED: ONDANSETRON INJ 2 MG/ML 2 ML VIAL IV PRN (14:13)
[2022-12-05] MEDS ORDERED: POLYETHYLENE (MIRALAX) 17 GM PACK PO PRN (14:13)
[2022-12-05] MEDS ORDERED: CARBOHYDRATES FOR HYPOGLYCEMIA PO PRN (14:13)
[2022-12-05] MEDS ORDERED: GLUCOSE 10 TAB/TUBE PO PRN (14:13)
[2022-12-05] MEDS ORDERED: GLUCOSE 40% GEL 15 GM TUBE PO PRN (14:13)
[2022-12-05] MEDS ORDERED: GLUCAGON FOR INJ 1 MG VIAL SQ PRN (14:13)
[2022-12-05] MEDS ORDERED: DEXTROSE 50% 50 ML SYRINGE IV PRN (14:13)
[2022-12-05] MEDS ORDERED: POTASSIUM CHLORIDE CRTAB 20 MEQ TABCR PO STA (14:38)
[2022-12-05] MEDS: INSULIN ASPART PER UNIT CHARGE SC SCH ×3 (14:43→22:24)
--- NOTE | 2022-12-05 14:51 | Pulmonary Consultation ---
Date of Consultation December 05, 2022 Assessment & Plan (1) Pulmonary nodule seen on imaging study: Patient was seen and evaluated at bedside. Imaging studies were reviewed. Patient is a lifelong non-smoker with no other risk factors. Her relative risk for malignancy is calculated as "lower." Given this being a new finding and patient without other risk factors, it is reasonable for watchful waiting at this time. Follow-up dedicated chest CT in 3 months with follow-up with pulmonary medicine as appropriate at this time. This information was relayed to the patient who is agreeable with treatment plan moving forward. We will be happy to see the patient back in the office in 3 months after obtaining d edicated chest CT imaging. Thank you for allowing us to participate in the care of this patient. Pulmonary medicine will sign off at this time. History of Present Illness Reason for Consultation: 1.9mm LLL nodule found on CTAP Requesting Physician: Miranda Coronado PA-C Attending Physician: Nancy Ramirez MD History of Present Illness Patient is a 72-year-old female with a significant past medical history of diabetes, dyslipidemia, hypertension who presented to the emergency department today with a 4-day history of fever, chills, generalized malaise. Patient was found to be septic with concerns for urinary tract infection. CT scan of the abdomen pelvis found 1.9 cm LEFT lower lobe pulmonary nodule. Pulmonary medicine was consulted for ongoing evaluation and management. Upon evaluation in room 2341, the patient is awake, alert, and oriented. She reports no prior history of lung nodules to her knowledge. She is a lifelong non-smoker. She does report secondhand smoke exposure for approximately 17 years in the 70s to 80s while to her previous . 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 She reports no exposure to exotic pets, fish, birds, turtles, etc. No personal history of malignancy. No family history of lung cancers. She reports no recent unintentional weight loss or night sweats. She reports no upper respiratory symptoms including chest pain, cough, shortness of breath, or hemoptysis. Allergies Allergy/AdvReac Type Severity Reaction Status Date / Time No Known Allergies Allergy Unverified 12/05/22 11:44 Home Medications Medication Instructions Recorded Confirmed Type aspirin 81 mg capsule 81 mg PO DAILY 12/05/22 12/05/22 History cetirizine 10 mg capsule (Zyrtec) 10 mg PO DAILY PRN Allergic 12/05/22 12/05/22 History Symptoms conjugated estrogens 0.3 mg tablet 0.3 mg PO DAILY 12/05/22 12/05/22 History (Premarin) escitalopram oxalate 10 mg tablet 10 mg PO DAILY 12/05/22 12/05/22 History fluorouracil 5 % topical cream 1 applic topical BID 12/05/22 12/05/22 History (Efudex) glipizide 10 mg tablet 10 mg PO DAILY 12/05/22 12/05/22 History ketotifen fumarate 0.025 % (0.035 1 drp ophthalmic (eye) BID 12/05/22 12/05/22 History %) eye drops rosuvastatin 40 mg tablet 40 mg PO DAILY 12/05/22 12/05/22 History semaglutide 1 mg/dose (4 mg/3 mL) 1 mg subcut WK 12/05/22 12/05/22 History subcutaneous pen injector (Ozempic) valsartan 160 1 tab PO DAILY 12/05/22 12/05/22 History mg-hydrochlorothiazide 12.5 mg tablet Patient History Medical History Diabetes mellitus, type II Dyslipidemia History of skin cancer HTN (hypertension) Surgical History H/O foot surgery H/O: hysterectomy Family History Other Diabetes Ovarian cancer Thyroid cancer Social History Smoking Status: Never smoker Hx Alcohol Use: No Hx Substance Use: No Feels Safe at Home: Yes Review of Systems Review of Systems: A complete 10 point review of systems was reviewed with the patient with pertinent positives and negatives as per history of present illness. All else were negative. Physical Exam Physical Exam: VITAL SIGNS - Vital signs and nursing notes were reviewed. GENERAL - 72-year-old female appearing her stated age who is in no acute distress. Communicates well with provider and answers questions appropriately. SKIN - Without rashes or lesions. NOSE - Midline and without cyanosis. MOUTH/OROPHARYNX - Without perioral cyanosis. NECK - Neck with FROM. LUNGS - Chest wall evaluation demonstrates normal chest wall A:P diameter. Auscultation reveals no wheezes, rales, or rhonchi noted. CARDIAC - RRR with S1/S2. No murmur, rubs, or gallops appreciated. ABDOMEN - Abdominal inspection demonstrates flat. BS normoactive all four quadrants. No tenderness, palpable masses, or ascites noted. EXTREMITIES - Nail clubbing not present. No peripheral cyanosis. No pretibial edema present. +3/5 radial palpated throughout. PSYCH - A&Ox3 and cooperates fully with examiner. Pt is very pleasant and interacts well with examiner. Results & Data Results & Data Vital Signs (Past 12 Hours) Vital Signs Temp Pulse Pulse Resp BP BP Pulse Ox 12/05/22 14:13 37.1 C 95 H 20 127/77 98 12/05/22 13:52 95 H 18 131/69 97 12/05/22 13:19 92 H 20 130/68 97 12/05/22 12:00 95 H 18 121/69 96 12/05/22 11:15 37.1 C 101 H 18 122/66 96 12/05/22 10:23 94 H 24 135/69 98 12/05/22 09:46 38.0 C H 102 H 26 H 144/89 H 92 12/05/22 08:35 104 H 24 153/71 H 98 12/05/22 08:12 88 L 12/05/22 07:20 110 H 14 91 12/05/22 08:05 105 H 18 92 12/05/22 08:03 108 H 18 88 L 12/05/22 07:20 38.3 C H 110 H 14 153/73 H 91 12/05/22 07:33 110 H O2 Del Method O2 Flow Rate 12/05/22 14:13 Nasal Cannula 2 12/05/22 13:52 Nasal Cannula 2 12/05/22 13:19 Nasal Cannula 2 12/05/22 12:00 Room Air 12/05/22 11:15 Nasal Cannula 2 12/05/22 10:23 Room Air 12/05/22 09:46 Room Air 12/05/22 08:35 Nasal Cannula 2 12/05/22 08:12 Nasal Cannula 12/05/22 07:20 Room Air 12/05/22 08:05 Nasal Cannula 12/05/22 08:03 Room Air 12/05/22 07:20 Room Air 12/05/22 07:33 PG Care Time/CCT Total # of Minutes Spent Total Time Spent with Patient: Total time spent is greater than 50% in coordination of care (as documented) at patient's floor/unit and/or counseling patient: Coding Level of Care Code 09799 INT INP/OBS CARE 3/75MIN Diagnoses Pulmonary nodule seen on imaging study R91.1
--- NOTE | 2022-12-05 15:38 | Cardiology Consultation ---
Date of Consultation December 05, 2022 Assessment & Plan (1) NSVT (nonsustained ventricular tachycardia): (2) Pyelonephritis: (3) Complicated UTI (urinary tract infection): (4) Sepsis: Plan 72-year-old female admitted with sepsis due to pyelonephritis. 7 beat rashi of nonsustained ventricular tachycardia recorded on telemetry without associated symptoms. Recommend resting 2D transthoracic echocardiogram for assessment of LV systolic function. Maintain serum potassium greater than 4.0, and serum magnesium greater than 2.0. I have ordered 20 mEq of oral potassium now with repeat basic metabolic panel in a.m. Continue telemetry monitoring. Thank you for allowing me to participate in the care of your patient. History of Present Illness Reason for Consultation: Ventricular tachycardia Requesting Physician: Miranda Coronado PA-C Attending Physician: Nancy Ramirez MD History of Present Illness 72-year-old female present to the emergency department with chills and rigors. Feeling ill for approximately 72 hours prior to presentation. Febrile in ER. CT of the abdomen pelvis demonstrating left-sided pyelonephritis. Empiric antibiotics initiated. Cultures pending. While in ER, a 7 beat run of nonsustained ventricular tachycardia observed on telemetry without associated symptoms. Patient denies chest discomfort, palpitations, lightheadedness, dizziness, syncope, or near syncope. No orthopnea, PND, or lower extremity edema. Denies history of coronary disease, congestive heart failure, rheumatic fever as a child, or peripheral vascular disease. Cardiac risk factors include hypertension, diabetes, and dyslipidemia. Allergies Allergy/AdvReac Type Severity Reaction Status Date / Time No Known Allergies Allergy Unverified 12/05/22 11:44 Home Medications Medication Instructions Recorded Confirmed Type aspirin 81 mg capsule 81 mg PO DAILY 12/05/22 12/05/22 History cetirizine 10 mg capsule (Zyrtec) 10 mg PO DAILY PRN Allergic 12/05/22 12/05/22 History Symptoms conjugated estrogens 0.3 mg tablet 0.3 mg PO DAILY 12/05/22 12/05/22 History (Premarin) escitalopram oxalate 10 mg tablet 10 mg PO DAILY 12/05/22 12/05/22 History fluorouracil 5 % topical cream 1 applic topical BID 12/05/22 12/05/22 History (Efudex) glipizide 10 mg tablet 10 mg PO DAILY 12/05/22 12/05/22 History ketotifen fumarate 0.025 % (0.035 1 drp ophthalmic (eye) BID 12/05/22 12/05/22 History %) eye drops rosuvastatin 40 mg tablet 40 mg PO DAILY 12/05/22 12/05/22 History semaglutide 1 mg/dose (4 mg/3 mL) 1 mg subcut WK 12/05/22 12/05/22 History subcutaneous pen injector (Ozempic) valsartan 160 1 tab PO DAILY 12/05/22 12/05/22 History mg-hydrochlorothiazide 12.5 mg tablet Patient History Medical History Diabetes mellitus, type II Dyslipidemia History of skin cancer HTN (hypertension) Surgical History H/O foot surgery H/O: hysterectomy Family History Other Diabetes Ovarian cancer Thyroid cancer Social History Smoking Status: Never smoker Hx Alcohol Use: Yes Hx Substance Use: No Preferred Language: Bulgarian Communication Ability: Effective Design Tech Required: No Beliefs That Will Affect Care: None Current Living Situation: Alone Feels Safe at Home: Yes Assistive Devices: None Review of Systems Review of Systems: All systems reviewed & are unremarkable except as noted in Subjective Physical Exam Constitutional: well nourished and + ill appearing; no acute distress Respiratory: normal respiratory effort; no respiratory distress, no labored breathing and no retractions Auscultation: no crackles, no rales, no rhonchi and no wheezes Cardiovascular: Rate/Rhythm: regular rate, regular rhythm and + tachycardic Heart Sounds: normal S1 and normal S2; no murmur Vessels: radial pulses present; no JVD and no carotid bruit Extremities: no edema Gastrointestinal (Abdomen): Inspection/Auscultation: abdomen normal to inspection and normal bowel sounds; abdomen not distended Percussion/Pa lpation: abdomen soft; abdomen nontender, no guarding and abdomen not rigid Neurologic: CN's II-XI intact bilaterally and moves all extremities; no focal motor deficits Results & Data Vital Signs (Past 12 Hours) Vital Signs Temp Pulse Pulse Resp BP BP Pulse Ox 12/05/22 14:13 37.1 C 95 H 20 127/77 98 12/05/22 13:52 95 H 18 131/69 97 12/05/22 13:19 92 H 20 130/68 97 12/05/22 12:00 95 H 18 121/69 96 12/05/22 11:15 37.1 C 101 H 18 122/66 96 12/05/22 10:23 94 H 24 135/69 98 12/05/22 09:46 38.0 C H 102 H 26 H 144/89 H 92 12/05/22 08:35 104 H 24 153/71 H 98 12/05/22 08:12 88 L 12/05/22 07:20 110 H 14 91 12/05/22 08:05 105 H 18 92 12/05/22 08:03 108 H 18 88 L 12/05/22 07:20 38.3 C H 110 H 14 153/73 H 91 12/05/22 07:33 110 H O2 Del Method O2 Flow Rate 12/05/22 14:13 Nasal Cannula 2 12/05/22 13:52 Nasal Cannula 2 12/05/22 13:19 Nasal Cannula 2 12/05/22 12:00 Room Air 12/05/22 11:15 Nasal Cannula 2 12/05/22 10:23 Room Air 12/05/22 09:46 Room Air 12/05/22 08:35 Nasal Cannula 2 12/05/22 08:12 Nasal Cannula 12/05/22 07:20 Room Air 12/05/22 08:05 Nasal Cannula 12/05/22 08:03 Room Air 12/05/22 07:20 Room Air 12/05/22 07:33 Laboratory Results Cardiac Enzymes 12/05/22 12/05/22 Range/Units 07:30 14:21 AST 158 H (13-39) U/L Troponin I High Sens 18.2 H 19.8 H (0-14) pg/ml Coagulation 12/05/22 Range/Units 07:30 PT 10.4 (9.0-12.0) Seconds CBC 12/05/22 Range/Units 07:30 WBC 5.56 (4.8-10.8) K/ul RBC 3.66 L (4.20-5.40) M/uL Hgb 11.1 L (12.0-16.0) g/dl Hct 33.2 L (37.0-47.0) % Plt Count 156 (130-400) K/uL Neut # (Auto) 4.63 (1.40-6.50) K/uL Lymph # (Auto) 0.49 L (1.2-3.4) K/uL [place] # (Auto) 0.37 (0.11-0.59) K/uL Eos # (Auto) 0.02 (0-0.50) K/uL Baso # (Auto) 0.02 (0-0.2) K/uL Comprehensive Metabolic Panel 12/05/22 Range/Units 07:30 Sodium 134 L (136-145) mmol/L Potassium 3.6 (3.5-5.1) mmol/L Chloride 96 L (98-107) mmol/L Carbon Dioxide 26 (21-32) mmol/L BUN 24 H (6-23) mg/dl Creatinine 1.20 (0.6-1.2) mg/dl Glucose 179 H (70-99(Fasting)) mg/dl Calcium 9.1 (8.6-10.3) mg/dl Direct Bilirubin 0.6 H (0-0.2) mg/dl AST 158 H (13-39) U/L ALT 190 H (7-52) U/L Alkaline Phosphatase 185 H (34-104) U/L Total Protein 7.3 (6.0-8.3) gm/dl Albumin 3.6 (3.4-5.0) gm/dl Intake and Output 12/05/22 12/05/22 12/05/22 06:59 14:59 22:59 Intake Total 2069 Output Total 150 / 150 Balance 1919 Intake: IV 2069 Sodium Chloride 0.9% 1000ML 2, 2000 / 1999 000 ml @ 999 mls/hr IV .Q2H1M ONE Rx#:[id number] cefTRIAXone SODIUM 2,000 mg In 70 / 70 70 ml @ 140 mls/hr IV NOW STA Rx#:[id number] Output: Urine 150 / 150 Other: Weight 84 kg Weight Measurement Method Built in [facility] Patient Weight 12/06/22 06:59 Weight 84 kg
[2022-12-05] MEDS: ACETAMINOPHEN 325 MG TAB PO PRN (19:49)
[2022-12-05] MEDS: ENOXAPARIN INJ 40 MG/0.4 ML SYR SQ SCH (19:49)
[2022-12-05 20:54] LABS: A calco-baum cmplx NotReported Not Detected (NotDetected); Bact fragilis Not Reported Not Detected (NotDetected); C auris Not Reported Not Detected (NotDetected); CTX-M Resistant Gene Not Detected (NotDetected); Calbicans Not Reported Not Detected (NotDetected); Candida glabrata Not Reported Not Detected (NotDetected); Candida krusei Not Reported Not Detected (NotDetected); Cneoformans/gatti Not Reported Not Detected (NotDetected); Cparapsilosis Not Reported Not Detected (NotDetected); Ctropicalis Not Reported Not Detected (NotDetected); E cloacae compx Not Reported Not Detected (NotDetected); Efaecalis Not Reported Not Detected (NotDetected); Efaecium Not Reported Not Detected (NotDetected); Enterobacterales DETECTED (NotDetected); Enterobacterales Not Reported DETECTED (NotDetected); Escherichia coli Not Reported DETECTED (NotDetected); H influenzae Not Reported Not Detected (NotDetected); IMP Resistant Gene Not Detected (NotDetected); K aerogenes Not Reported Not Detected (NotDetected); KPC Resistant Gene Not Detected (NotDetected); Koxytoca Not Reported Not Detected (NotDetected); Kpneumoniae grp Not Reported Not Detected (NotDetected); Lmonocyt Not Reported Not Detected (NotDetected); N meningitidis Not Reported Not Detected (NotDetected); NDM Resistant Gene Not Detected (NotDetected); OXA 48 Like Resistant Gene Not Detected (NotDetected); P aeruginosa Not Reported Not Detected (NotDetected); Proteus spp Not Reported Not Detected (NotDetected); Salmonella spp Not Reported Not Detected (NotDetected); Smarcescens Not Reported Not Detected (NotDetected); Staph lugdunensis Not Reported Not Detected (NotDetected); Staph spp. Not Reported Not Detected (NotDetected); Staphaureus Not Reported Not Detected (NotDetected); Staphepi Not Reported Not Detected (NotDetected); Stenmaltophilia Not Reported Not Detected (NotDetected); Strep agal(GrpB) Not Reported Not Detected (NotDetected); Strep pneum Not Reported Not Detected (NotDetected); Strep pyog (GrpA) Not Reported Not Detected (NotDetected); Strep spp Not Reported Not Detected (NotDetected); VIM Resistant Gene Not Detected (NotDetected); mcr-1 Colistin Resistant Gene Not Detected (NotDetected)
[2022-12-05] MEDS ORDERED: diphenhydrAMINE Capsule 25 MG CAP PO ONE (22:31)
[2022-12-06] MEDS: ACETAMINOPHEN 325 MG TAB PO PRN ×5 (00:16→22:32)
[2022-12-06] MEDS ORDERED: FEXOFENADINE 60 MG TAB PO ONE (04:57)
[2022-12-06 07:43] LABS: Vitamin B12 507 pg/ml (180-914)
[2022-12-06] MEDS: INSULIN ASPART PER UNIT CHARGE SC SCH ×4 (08:31→22:30)
[2022-12-06 08:36] LABS: Estimated Average Glucose 154 mg/dl
[2022-12-06] MEDS: VALSARTAN 80 MG TAB PO SCH (08:36)
[2022-12-06] MEDS: ROSUVASTATIN CALCIUM 20 MG TAB PO SCH (08:36)
[2022-12-06] MEDS: ESCITALOPRAM OXALATE 10 MG TAB PO SCH (08:37)
[2022-12-06] MEDS: ESTROGENS, CONJUGATED 0.3 MG TAB PO SCH (08:37)
[2022-12-06] MEDS: ASPIRIN 81 MG ECTAB PO SCH (08:37)
[2022-12-06] MEDS: cefTRIAXone SODIUM 2,000 MG in DEXTROSE 5% 50 ML IV SCH (08:45)
[2022-12-06] MEDS ORDERED: bisacodyL 5 MG TABEC PO PRN (08:53)
[2022-12-06] MEDS ORDERED: bisacodyL 5 MG TABEC PO SCH (09:00)
[2022-12-06 09:33] LABS: Basophils # (auto) 0.03 K/uL (0-0.2); Basophils % (auto) 0.3 %; Eosinophils # (auto) 0.03 K/uL (0-0.50); Eosinophils % (auto) 0.3 %; Hematocrit (blood only) 30.8 % (37.0-47.0); Hemoglobin 10.3 g/dl (12.0-16.0); Immature Granulocytes # (auto) 0.07 K/uL (0.01-0.20); Immature Granulocytes % (auto) 0.7 %; Lymphocytes # (auto) 0.91 K/uL (1.2-3.4); Lymphocytes % (auto) 8.8 %; Mean Corpuscular Hemoglobin 30.3 pg (25.0-34.0); Mean Corpuscular Hgb Conc 33.4 g/dL (32.0-36.0); Mean Corpuscular Volume 90.6 fL (80.0-100.0); Mean Platelet Volume 9.8 fL (9.4-12.4); Monocytes # (auto) 0.95 K/uL (0.11-0.59); Monocytes % (auto) 9.2 %; Neutrophils # (auto) 8.39 K/uL (1.40-6.50); Neutrophils % (auto) 80.7 %; Platelet Count 187 K/uL (130-400); RDW Coefficient of Variation 13.1 % (11.5-14.5); RDW Standard Deviation 43.6 fL (36.4-46.3); White Blood Count 10.38 K/ul (4.8-10.8)
[2022-12-06 09:42] LABS: BUN Creatinine Ratio 18.4 (10-20); Creatinine Clr Calc Pharmacy 49.8 ml/min; Est GFR (African American) 55.6 ml/min; Magnesium 2.2 mg/dl (1.7-2.4); Potassium 3.8 mmol/L (3.5-5.1)
[2022-12-06 11:11] LABS: HBSAG NON-REACTIVE (NON-REACTIVE); Hepatitis A Antibody IgM NON-REACTIVE (NON-REACTIVE); Hepatitis B Core Antibody IgM NON-REACTIVE (NON-REACTIVE)
[2022-12-06] MEDS: SACCHAROMYCES BOULARDII 250 MG CAP PO SCH (11:16)
--- NOTE | 2022-12-06 12:15 | Cardiology Progress Note ---
Date of Service December 06, 2022 Assessment & Plan (1) NSVT (nonsustained ventricular tachycardia): (2) Pyelonephritis: (3) Complicated UTI (urinary tract infection): (4) Sepsis: Plan 72-year-old female admitted with sepsis due to pyelonephritis. Isolated 7 beat rashi of nonsustained ventricular tachycardia recorded on telemetry without associated symptoms. No recurrence overnight. Electrolytes supplemented. Echocardiogram demonstrating normal left ventricular systolic function denoting low cardiovascular risk. No further cardiac intervention is recommended at this time. Maintain adequate hydration and electrolyte replacement. Cardiology will sign off. Please call with any further concerns. Admission and Anticipated Discharge Date Admission Date: December 05, 2022 Subjective 72-year-old female seen and examined at the bedside. Feeling well from a cardiovascular perspective. Telemetry reveals sinus rhythm and sinus tachycardia. No recurrent ventricular tachycardia. Patient denies palpitations or lightheadedness. Review of Systems Review of Systems: All systems reviewed & are unremarkable except as noted in Subjective Physical Exam Constitutional: well nourished and + ill appearing; no acute distress Respiratory: normal respiratory effort; no respiratory distress, no labored breathing and no retractions Auscultation: no crackles, no rales, no rhonchi and no wheezes Cardiovascular: Rate/Rhythm: regular rate, regular rhythm and + tachycardic Heart Sounds: normal S1 and normal S2; no murmur Vessels: radial pulses present; no JVD and no carotid bruit Extremities: no edema Gastrointestinal (Abdomen): Inspection/Auscultation: abdomen normal to inspection and normal bowel sounds; abdomen not distended Percussion/ Palpation: abdomen soft; abdomen nontender, no guarding and abdomen not rigid Neurologic: CN's II-XI intact bilaterally and moves all extremities; no focal motor deficits Results & Data Vital Signs (Past 12 Hours) Vital Signs Temp Pulse Pulse Resp BP BP Pulse Ox 12/06/22 11:14 37.1 C 98 H 19 133/75 91 12/06/22 08:00 12/06/22 08:59 93 12/06/22 07:37 89 12/06/22 07:05 37.1 C 91 H 19 126/69 94 12/06/22 04:33 37.3 C 96 H 18 132/74 95 12/06/22 02:49 37.1 C 87 16 124/66 95 12/06/22 00:17 38 C H O2 Del Method O2 Flow Rate 12/06/22 11:14 Room Air 12/06/22 08:00 Room Air 12/06/22 08:59 Room Air 12/06/22 07:37 12/06/22 07:05 Nasal Cannula 0.5 12/06/22 04:33 Nasal Cannula 0.5 12/06/22 02:49 Nasal Cannula 12/06/22 00:17
--- NOTE | 2022-12-06 15:27 | Hospitalist Progress Note ---
Date of Service December 06, 2022 Assessment & Plan (1) Sepsis: (2) Complicated UTI (urinary tract infection): (3) HTN (hypertension): (4) Diabetes mellitus, type II: (5) Dyslipidemia: Plan This is a 72-year-old female with PMH of type 2 diabetes, dyslipidemia, hypertension here with sepsis, GNR bacteremia and left pyelonephritis. Sepsis Left Pyelonephritis GNR bacteremia -continue with ceftriaxone -continue IVF for another day, NSS at 100 cc/hr -repeat blood cultures ordered Atypical Chest pain NSVT troponin trend TTE shows mild LVH, mild MR. Appreciate Cardiology input HTN Normotensive. Continue valsartan with hold parameters. Will hold Hctz DM II A1c 6.7 in Jul, will repeat in AM Hold home oral agents SSI while in-patient BSG AC HS HLD Continue statin Lung nodules -appreciate Pulm input, outpatient surveillance and dedicated CT chest DVT Ppx: SQ lovenox Code status: DNR/DNI PCP: Benjy Dispo: Admitted to PCU Admission and Anticipated Discharge Date Admission Date: December 05, 2022 Subjective Feels weak, having chills No nausea/vomiting Review of Systems Review of Systems: as above Physical Exam Physical Exam: Laying in bed in darkened room, appears tired, fatigued, non toxic ENMT: Mucous membrane dry Respiratory: breathing comfortably on room air, no wheezing/rhonchi/rales Cardiovascular: regular rate and rhythm, no murmurs/rubs/gallops Gastrointestinal (Abdomen): soft, non tender Musculoskeletal: no edema Neurologic: awake, alert, spontaneously moving extremities Results & Data Results & Data Vital Signs (Past 12 Hours) Vital Signs Temp Pulse Pulse Resp BP BP Pulse Ox 12/06/22 15:19 117 H 12/06/22 11:14 37.1 C 98 H 19 133/75 91 12/06/22 08:00 12/06/22 08:59 93 12/06/22 07:37 89 12/06/22 07:05 37.1 C 91 H 19 126/69 94 12/06/22 04:33 37.3 C 96 H 18 132/74 95 O2 Del Method O2 Flow Rate 12/06/22 15:19 12/06/22 11:14 Room Air 12/06/22 08:00 Room Air 12/06/22 08:59 Room Air 12/06/22 07:37 12/06/22 07:05 Nasal Cannula 0.5 12/06/22 04:33 Nasal Cannula 0.5
[2022-12-06] MEDS: SODIUM CHLORIDE 0.9% 1000ML 1,000 ML IV SCH (15:40)
[2022-12-06] MEDS: ENOXAPARIN INJ 40 MG/0.4 ML SYR SQ SCH (22:29)
[2022-12-06] MEDS: MELATONIN 3 MG TAB PO PRN (22:33)
[2022-12-07] MEDS: SODIUM CHLORIDE 0.9% 1000ML 1,000 ML IV SCH ×2 (01:42→11:03)
[2022-12-07] MEDS: ACETAMINOPHEN 325 MG TAB PO PRN ×4 (04:42→20:03)
[2022-12-07] MEDS: FEXOFENADINE 60 MG TAB PO PRN ×2 (04:42→20:05)
[2022-12-07 07:12] LABS: Basophils # (auto) 0.03 K/uL (0-0.2); Basophils % (auto) 0.3 %; Eosinophils # (auto) 0.09 K/uL (0-0.50); Eosinophils % (auto) 0.9 %; Hematocrit (blood only) 27.8 % (37.0-47.0); Hemoglobin 9.3 g/dl (12.0-16.0); Immature Granulocytes # (auto) 0.19 K/uL (0.01-0.20); Immature Granulocytes % (auto) 1.8 %; Lymphocytes # (auto) 1.16 K/uL (1.2-3.4); Lymphocytes % (auto) 11.1 %; Mean Corpuscular Hemoglobin 30.3 pg (25.0-34.0); Mean Corpuscular Hgb Conc 33.5 g/dL (32.0-36.0); Mean Corpuscular Volume 90.6 fL (80.0-100.0); Mean Platelet Volume 9.7 fL (9.4-12.4); Monocytes # (auto) 0.96 K/uL (0.11-0.59); Monocytes % (auto) 9.2 %; Neutrophils # (auto) 8.05 K/uL (1.40-6.50); Neutrophils % (auto) 76.7 %; Platelet Count 196 K/uL (130-400); RDW Coefficient of Variation 13.2 % (11.5-14.5); RDW Standard Deviation 44.1 fL (36.4-46.3); Red Blood Count 3.07 M/uL (4.20-5.40); White Blood Count 10.48 K/ul (4.8-10.8)
[2022-12-07 07:39] LABS: BUN Creatinine Ratio 15.5 (10-20); Calcium 7.9 mg/dl (8.6-10.3); Creatinine Clr Calc Pharmacy 51.4 ml/min; Est GFR (African American) 58.1 ml/min; Est GFR (Non-African American) 50.1 ml/min; Potassium 3.9 mmol/L (3.5-5.1)
[2022-12-07] MEDS: INSULIN ASPART PER UNIT CHARGE SC SCH ×4 (08:07→21:00)
[2022-12-07] MEDS: cefTRIAXone SODIUM 2,000 MG in DEXTROSE 5% 50 ML IV SCH (08:15)
[2022-12-07] MEDS: ASPIRIN 81 MG ECTAB PO SCH (08:18)
[2022-12-07] MEDS: ESTROGENS, CONJUGATED 0.3 MG TAB PO SCH (08:19)
[2022-12-07] MEDS: ROSUVASTATIN CALCIUM 20 MG TAB PO SCH (08:19)
[2022-12-07] MEDS: SACCHAROMYCES BOULARDII 250 MG CAP PO SCH (08:19)
[2022-12-07] MEDS: ESCITALOPRAM OXALATE 10 MG TAB PO SCH (08:20)
[2022-12-07] MEDS: VALSARTAN 80 MG TAB PO SCH (08:50)
--- NOTE | 2022-12-07 16:34 | Hospitalist Progress Note ---
Date of Service December 07, 2022 Assessment & Plan (1) Sepsis: (2) Complicated UTI (urinary tract infection): (3) HTN (hypertension): (4) Diabetes mellitus, type II: (5) Dyslipidemia: Plan This is a 72-year-old female with PMH of type 2 diabetes, dyslipidemia, hypertension here with sepsis, E coli bacteremia and left pyelonephritis. Sepsis Left Pyelonephritis GNR bacteremia -continue with ceftriaxone -repeat blood culture from 12/06 is negative Atypical Chest pain NSVT troponin trend TTE shows mild LVH, mild MR. Appreciate Cardiology input HTN Normotensive. Continue valsartan with hold parameters. Will hold Hctz DM II A1c 6.7 in Jul Hold home oral agents SSI while in-patient BSG AC HS HLD Continue statin Lung nodules -appreciate Pulm input, outpatient surveillance and dedicated CT chest DVT Ppx: SQ lovenox Code status: DNR/DNI Admission and Anticipated Discharge Date Admission Date: December 05, 2022 Subjective Feels a little better but still very weak. Describes her strength as a 2/10 compared to 1/10 yesterday and 0/10 when she first came in Fever to 38.2 overnight Appetite is improved No arrhythmia on telemetry overnight Review of Systems Review of Systems: as above Physical Exam Physical Exam: Appears younger than stated age, no acute distress, non toxic ENMT: Mucous membrane moist Respiratory: Breathing comfortably on room air, no wheezing/rhonchi Cardiovascular: tachycardic but regular, no murmurs/rubs/gallops Results & Data Results & Data Vital Signs (Past 12 Hours) Vital Signs Temp Pulse Pulse Resp BP Pulse Ox O2 Del Method 12/07/22 14:59 37.1 C 96 H 18 137/81 91 Room Air 12/07/22 08:15 Room Air 12/07/22 11:05 36.7 C 113 H 19 126/74 93 Room Air 12/07/22 07:06 36.9 C 106 H 19 136/76 91 Room Air 12/07/22 07:00 117 H
[2022-12-07] MEDS: MELATONIN 3 MG TAB PO PRN (20:05)
[2022-12-07] MEDS: ENOXAPARIN INJ 40 MG/0.4 ML SYR SQ SCH (20:05)
[2022-12-08] MEDS: ACETAMINOPHEN 325 MG TAB PO PRN ×4 (03:43→20:07)
[2022-12-08 07:40] LABS: BUN Creatinine Ratio 16.1 (10-20); Calcium 7.9 mg/dl (8.6-10.3); Creatinine Clr Calc Pharmacy 48.2 ml/min; Est GFR (African American) 53.4 ml/min; Potassium 4.3 mmol/L (3.5-5.1)
[2022-12-08 07:57] LABS: Basophils # (auto) 0.03 K/uL (0-0.2); Basophils % (auto) 0.3 %; Eosinophils # (auto) 0.15 K/uL (0-0.50); Eosinophils % (auto) 1.5 %; Hematocrit (blood only) 28.4 % (37.0-47.0); Hemoglobin 9.3 g/dl (12.0-16.0); Immature Granulocytes # (auto) 0.36 K/uL (0.01-0.20); Immature Granulocytes % (auto) 3.7 %; Lymphocytes # (auto) 1.45 K/uL (1.2-3.4); Mean Corpuscular Hemoglobin 30.1 pg (25.0-34.0); Mean Corpuscular Hgb Conc 32.7 g/dL (32.0-36.0); Mean Corpuscular Volume 91.9 fL (80.0-100.0); Mean Platelet Volume 9.6 fL (9.4-12.4); Monocytes # (auto) 0.74 K/uL (0.11-0.59); Monocytes % (auto) 7.6 %; Neutrophils # (auto) 6.96 K/uL (1.40-6.50); Neutrophils % (auto) 71.9 %; Platelet Count 236 K/uL (130-400); RDW Coefficient of Variation 13.4 % (11.5-14.5); RDW Standard Deviation 45.3 fL (36.4-46.3); Red Blood Count 3.09 M/uL (4.20-5.40); White Blood Count 9.69 K/ul (4.8-10.8)
[2022-12-08] MEDS: SACCHAROMYCES BOULARDII 250 MG CAP PO SCH (08:35)
[2022-12-08] MEDS: ESCITALOPRAM OXALATE 10 MG TAB PO SCH (08:36)
[2022-12-08] MEDS: VALSARTAN 80 MG TAB PO SCH (08:36)
[2022-12-08] MEDS: ROSUVASTATIN CALCIUM 20 MG TAB PO SCH (08:36)
[2022-12-08] MEDS: ESTROGENS, CONJUGATED 0.3 MG TAB PO SCH (08:36)
[2022-12-08] MEDS: ASPIRIN 81 MG ECTAB PO SCH (08:37)
[2022-12-08] MEDS: INSULIN ASPART PER UNIT CHARGE SC SCH ×4 (08:49→22:05)
[2022-12-08] MEDS: cefTRIAXone SODIUM 2,000 MG in DEXTROSE 5% 50 ML IV SCH (08:51)
--- NOTE | 2022-12-08 11:05 | Hospitalist Progress Note ---
Date of Service December 08, 2022 Assessment & Plan (1) Sepsis: (2) Complicated UTI (urinary tract infection): (3) HTN (hypertension): (4) Diabetes mellitus, type II: (5) Dyslipidemia: Plan This is a 72-year-old female with PMH of type 2 diabetes, dyslipidemia, hypertension here with sepsis, E coli bacteremia and left pyelonephritis. Sepsis Left Pyelonephritis E coli bacteremia -continue with ceftriaxone -repeat blood culture from 12/06 is negative -Interestingly, urine culture is negative -Now with drenching sweats, worsening fatigue. Will repeat blood culture. Will ask for ID consult Atypical Chest pain NSVT troponin trend TTE shows mild LVH, mild MR. Appreciate Cardiology input HTN Normotensive. Continue valsartan with hold parameters. Resuming Hctz at 12.5mg daily with hold parameters DM II A1c 6.7 in Jul Hold home oral agents SSI while in-patient BSG AC HS HLD Continue statin Lung nodules -appreciate Pulm input, outpatient surveillance and dedicated CT chest DVT Ppx: SQ lovenox Code status: DNR/DNI Admission and Anticipated Discharge Date Admission Date: December 05, 2022 Subjective Feels unwell, very tired. Drenched in sweat Reports swelling of her left hand (below site of IV line) Review of Systems Review of Systems: as above Physical Exam Physical Exam: Appears weak, tired, ill but not toxic Respiratory: breathing comfortably on room air, no wheezing/rhonchi/rales Cardiovascular: regular rate and rhythm, no murmurs/rubs/gallops Gastrointestinal (Abdomen): soft, non tender Musculoskeletal: left hand with some swelling Neurologic: sleeping, easily arousable, answers questions appropriately, spontaneously moving extremities Results & Data Results & Data Vital Signs (Past 12 Hours) Vital Signs Temp Pulse Pulse Resp BP Pulse Ox O2 Del Method 12/08/22 07:56 91 H 12/08/22 07:02 36.7 C 93 H 18 146/80 H 92 Room Air 12/08/22 03:49 37.4 C 112 H 20 136/80 94 Room Air 12/08/22 02:46 36.6 C 104 H 16 128/75 92 Room Air 12/07/22 23:30 119 H
[2022-12-08] MEDS: ENOXAPARIN INJ 40 MG/0.4 ML SYR SQ SCH (22:04)
[2022-12-08] MEDS: FEXOFENADINE 60 MG TAB PO PRN (22:06)
[2022-12-08] MEDS: MELATONIN 3 MG TAB PO PRN (22:06)
[2022-12-09] MEDS: ACETAMINOPHEN 325 MG TAB PO PRN ×6 (00:30→22:29)
[2022-12-09 02:03] LABS: Babesia microti DNA Not Detected (Not Detected)
[2022-12-09 07:29] LABS: Basophils # (auto) 0.03 K/uL (0-0.2); Basophils % (auto) 0.3 %; Eosinophils # (auto) 0.18 K/uL (0-0.50); Eosinophils % (auto) 1.8 %; Hematocrit (blood only) 28.6 % (37.0-47.0); Hemoglobin 9.6 g/dl (12.0-16.0); Immature Granulocytes # (auto) 0.39 K/uL (0.01-0.20); Immature Granulocytes % (auto) 3.9 %; Lymphocytes # (auto) 1.68 K/uL (1.2-3.4); Lymphocytes % (auto) 16.6 %; Mean Corpuscular Hemoglobin 30.7 pg (25.0-34.0); Mean Corpuscular Hgb Conc 33.6 g/dL (32.0-36.0); Mean Corpuscular Volume 91.4 fL (80.0-100.0); Mean Platelet Volume 9.3 fL (9.4-12.4); Monocytes # (auto) 0.83 K/uL (0.11-0.59); Monocytes % (auto) 8.2 %; Neutrophils % (auto) 69.2 %; Platelet Count 268 K/uL (130-400); RDW Coefficient of Variation 13.6 % (11.5-14.5); RDW Standard Deviation 45.3 fL (36.4-46.3); Red Blood Count 3.13 M/uL (4.20-5.40); White Blood Count 10.11 K/ul (4.8-10.8)
[2022-12-09] MEDS: SACCHAROMYCES BOULARDII 250 MG CAP PO SCH (07:45)
[2022-12-09] MEDS: cefTRIAXone SODIUM 2,000 MG in DEXTROSE 5% 50 ML IV SCH (07:45)
[2022-12-09] MEDS: VALSARTAN 80 MG TAB PO SCH (07:45)
[2022-12-09] MEDS: ESCITALOPRAM OXALATE 10 MG TAB PO SCH (07:45)
[2022-12-09] MEDS: ASPIRIN 81 MG ECTAB PO SCH (07:45)
[2022-12-09] MEDS: ROSUVASTATIN CALCIUM 20 MG TAB PO SCH (07:46)
[2022-12-09] MEDS: ESTROGENS, CONJUGATED 0.3 MG TAB PO SCH (07:47)
[2022-12-09] MEDS: INSULIN ASPART PER UNIT CHARGE SC SCH ×4 (07:56→20:30)
[2022-12-09 07:58] LABS: Albumin Globulin Ratio 0.9 (0.9-2); BUN Creatinine Ratio 17.9 (10-20); Bilirubin,Total 0.4 mg/dl (0.2-1.0); Calcium 8.3 mg/dl (8.6-10.3); Creatinine Clr Calc Pharmacy 50.8 ml/min; Est GFR (African American) 56.8 ml/min; Globulin 3.2 gm/dl (2.5-4.0); Total Protein 6.2 gm/dl (6.0-8.3)
[2022-12-09] MEDS: hydroCHLOROthiazide 25 MG TAB PO SCH (09:27)
--- NOTE | 2022-12-09 17:54 | Hospitalist Progress Note ---
Date of Service December 09, 2022 Assessment & Plan (1) Sepsis: (2) Complicated UTI (urinary tract infection): (3) HTN (hypertension): (4) Diabetes mellitus, type II: (5) Dyslipidemia: Plan This is a 72-year-old female with PMH of type 2 diabetes, dyslipidemia, hypertension here with sepsis, E coli bacteremia and left pyelonephritis. Sepsis Left Pyelonephritis E coli bacteremia -continue with ceftriaxone, can switch to ciprofloxacin at discharge to complete a 7 day course. Patient was counseled on risk of fluoroquinolone use (neuropathy, tendon rupture, arrhythmia) -repeat blood culture from 12/06 is negative -Interestingly, urine culture is negative -Appreciate ID input Atypical Chest pain NSVT troponin trend TTE shows mild LVH, mild MR. Appreciate Cardiology input HTN Normotensive. Continue valsartan and HCTZ with hold parameters DM II A1c 6.7 in Jul Hold home oral agents SSI while in-patient BSG AC HS HLD Continue statin Lung nodules -appreciate Pulm input, outpatient surveillance and dedicated CT chest DVT Ppx: SQ lovenox Code status: DNR/DNI Disposition-- Likely discharge home tomorrow if continues to do well Admission and Anticipated Discharge Date Admission Date: December 05, 2022 Subjective Doing well. Feels much better today. No fevers, no chills. No further sweats. Noticed rash on back but no where else on her body Has been getting up to use restroom with no difficulty but earlier felt sharp right groin pain which has since resolved. Review of Systems Review of Systems: As above Physical Exam Physical Exam: appears well, no acute distress Respiratory: breathing comfortably on room air, no wheezing/rhonchi Cardiovascular: regular rate and rhythm, no murmurs/rubs Gastrointestinal (Abdomen): soft, non tender to deep palpation Musculoskeletal: no edema Neurologic: awake, alert, spontaneously moving extremities Results & Data Results & Data Vital Signs (Past 12 Hours) Vital Signs Temp Pulse Pulse Resp BP Pulse Ox O2 Del Method 12/09/22 16:08 76 12/09/22 15:34 37 C 86 18 147/82 H 94 Room Air 12/09/22 11:07 37.0 C 83 19 147/70 H 94 Room Air 12/09/22 08:23 99 H 12/09/22 07:01 36.9 C 90 19 154/84 H 92 Room Air
[2022-12-09] MEDS: ENOXAPARIN INJ 40 MG/0.4 ML SYR SQ SCH (19:59)
[2022-12-09] MEDS: FEXOFENADINE 60 MG TAB PO PRN (21:44)
[2022-12-09] MEDS: MELATONIN 3 MG TAB PO PRN (21:44)
[2022-12-10] MEDS: ACETAMINOPHEN 325 MG TAB PO PRN ×3 (03:18→12:16)
[2022-12-10] MEDS: INSULIN ASPART PER UNIT CHARGE SC SCH ×2 (08:15→11:56)
[2022-12-10] MEDS: ESTROGENS, CONJUGATED 0.3 MG TAB PO SCH (08:19)
[2022-12-10] MEDS: ESCITALOPRAM OXALATE 10 MG TAB PO SCH (08:19)
[2022-12-10] MEDS: ASPIRIN 81 MG ECTAB PO SCH (08:19)
[2022-12-10] MEDS: VALSARTAN 80 MG TAB PO SCH (08:20)
[2022-12-10] MEDS: SACCHAROMYCES BOULARDII 250 MG CAP PO SCH (08:20)
[2022-12-10] MEDS: ROSUVASTATIN CALCIUM 20 MG TAB PO SCH (08:20)
[2022-12-10] MEDS: hydroCHLOROthiazide 25 MG TAB PO SCH (08:20)
[2022-12-10 08:23] LABS: Basophils # (auto) 0.05 K/uL (0-0.2); Basophils % (auto) 0.5 %; Eosinophils # (auto) 0.16 K/uL (0-0.50); Eosinophils % (auto) 1.7 %; Hematocrit (blood only) 28.7 % (37.0-47.0); Hemoglobin 9.4 g/dl (12.0-16.0); Immature Granulocytes % (auto) 4.3 %; Lymphocytes # (auto) 1.59 K/uL (1.2-3.4); Lymphocytes % (auto) 16.9 %; Mean Corpuscular Hemoglobin 30.1 pg (25.0-34.0); Mean Corpuscular Hgb Conc 32.8 g/dL (32.0-36.0); Mean Platelet Volume 9.3 fL (9.4-12.4); Monocytes # (auto) 0.58 K/uL (0.11-0.59); Monocytes % (auto) 6.2 %; Neutrophils # (auto) 6.61 K/uL (1.40-6.50); Neutrophils % (auto) 70.4 %; Platelet Count 304 K/uL (130-400); RDW Coefficient of Variation 13.6 % (11.5-14.5); RDW Standard Deviation 46.2 fL (36.4-46.3); Red Blood Count 3.12 M/uL (4.20-5.40); White Blood Count 9.39 K/ul (4.8-10.8)
[2022-12-10 08:32] LABS: Albumin Globulin Ratio 0.9 (0.9-2); Albumin Level 3.1 gm/dl (3.4-5.0); BUN Creatinine Ratio 18.4 (10-20); Bilirubin,Total 0.4 mg/dl (0.2-1.0); Calcium 8.7 mg/dl (8.6-10.3); Creatinine Clr Calc Pharmacy 55.6 ml/min; Est GFR (African American) 62.9 ml/min; Est GFR (Non-African American) 54.3 ml/min; Globulin 3.3 gm/dl (2.5-4.0); Potassium 4.1 mmol/L (3.5-5.1); Total Protein 6.4 gm/dl (6.0-8.3)
[2022-12-10] MEDS: cefTRIAXone SODIUM 2,000 MG in DEXTROSE 5% 50 ML IV SCH (09:01)
--- NOTE | 2022-12-10 13:39 | Discharge Summary ---
Date of Service December 10, 2022 Admission HPI Per Admitting Provider This is a 72-year-old female with PMH of type 2 diabetes, dyslipidemia, hypertension and other medical problems listed below who presents with myalgias and chills x3 days. Continued to feel poorly over the past few days and her son brought her into ED. Endorsing some discomfort in center of chest that comes and goes and is a 4/10. Associated shortness of breath. No recent illness with congestion or rhinorrhea. Dull headache. Poor appetite but increased thirst. No known bug bites or rashes. No known history of liver disease. Denies any dizziness, nausea, vomiting, abdominal pain, dysuria, increased frequency or ur gency. No diarrhea or constipation. Principal Diagnosis Pyelonephritis Sepsis E coli Bacteremia left lower lobe lung nodule Transaminitis Discharge Exam Patient seen and examined in her room at 140pm. She feels well. Ambulated in hallway last night and again this morning with no difficulty Reports some right groin pain and getting into/out of bed but none currently Bowel movement today was soft Constitutional Appears well. No acute distress. Non toxic Respiratory Breathing comfortably on room air. No wheezing/rhonchi/rales Cardiovascular Regular rate and rhythm. No murmurs/rubs/gallops Gastrointestinal (Abdomen) Normal bowel sounds. No abdominal tenderness to light or deep palpation in umbilical or right lower quadrant. No rebound. No guarding. Abdomen is soft and non distended Musculoskeletal Right hip range of motion ---external and internal rotation was intact, ROM was without pain Neurologic awake, alert, spontaneously moving extremities. Ambulating in room without difficulty Discharge Data Allergies Allergy/AdvReac Type Severity Reaction Status Date / Time No Known Allergies Allergy Unverified 12/05/22 11:44 Consultations 12/05/22 10:12 ED Decision to Admit Stat 12/05/22 11:39 Consult Cardiology Routine 12/05/22 13:01 Consult Pulmonology Routine 12/08/22 10:58 Consult Infectious Diseases Routine Ordered Studies 12/05/22 08:31 CT Abd and Pelvis [CT abd pelvis IV con only] Stat Hospital Course (1) Sepsis: (2) Complicated UTI (urinary tract infection): (3) HTN (hypertension): (4) Diabetes mellitus, type II: (5) Dyslipidemia: Plan This is a 72-year-old female with PMH of type 2 diabetes, dyslipidemia, hypertension here with sepsis, E coli bacteremia and left pyelonephritis. Sepsis Left Pyelonephritis E coli bacteremia -CT A/P shows left pyelonephritis. No stones. Incidental finding of left lower lobe lung nodule -Urine culture negative -Blood culture 12/05 both sets are positive for E coli. -Blood culture 12/06 and 12/08 no growth to date -Completed 5 days of ceftriaxone here and will discharge on an additional 2 days of ciprofloxacin to complete 7 day course -ID consulted here Atypical Chest pain NSVT troponin trend TTE shows mild LVH, mild MR. Appreciate Cardiology input HTN Initially HCTZ held due to sepsis. It was restarted on subsequent days Blood pressure remained stable Lung nodule -Incidental finding of lung nodule on CT A/P. Evaluated by pulmonology here. Recommend follow up with Pulmonology for surveillance of nodules with dedicated CT chest. Patient was doing well and felt back to her baseline functional status. Once she regained her strength, she began to ambulate in the hallway she then noted right groin discomfort (sharp pain) which resolved with rest but persisted as a dull ache. Abdominal exam was benign on 12/09 and 12/10. Right hip exam on 12/10 did not elicit pain with ROM and ROM of her right hip is intact. Upon further questioning, patient has a history of hysterectomy with incisions in that area that she is now experiencing pain. Her current discomfort with movement is most likely from scar tissue related to her surgery. She can follow up with her PCP and further workup/imaging/referral as needed. Total Time Total Time Spent Total Time Spent (In Minutes): 45 Discharge Plan Discharge Items Patient Disposition: Home - Self-Care Reason For Visit: SEPSIS 2/2 COMPLICATED UTI Discharge Diagnosis: Pyelonephritis Sepsis E coli Bacteremia left lower lobe lung nodule Transaminitis Condition on Discharge: Good Activity: Resume your previous activity Non-emergency contact: Primary Care Provider Call non-emergency contact if: you have any medication questions, your symptoms worsen and you have a fever Follow-up/Referrals: Shawn Marquez MD [Physician] - (For monitoring of your lung nodule) Kaitlynn Burleson MD [Primary Care Provider] - Diet: Heart Healthy Addtl Attending Provider Instructions: You were admitted for fatigue, weakness, fever. You were found to have a kidney infection with E coli bacteremia (blood stream infection) You received 5 days of IV ceftriaxone here and will be discharged home on Ciprofloxacin 500mg twice a day for another 2 days While on Ciprofloxacin, please monitor yourself for side effects (tendon pain, swelling, numbness/tingling). If you have weakness/fatigue/fever/chills/nausea/vomiting. Please call your doctor or return to the ER To promote gut health, you should eat yogurt with live culture or take a probiotic OTC pill for at least the next week You were found incidentally to have a lung nodule. You were seen by Pulmonology (lung doctor) and it was recommended you follow up with them for repeat imaging in 3months to monitor You Liver Enzymes (LFTs) were elevated likely due to your sepsis and infection. At the time of discharge, your LFTs elevation are improving but is not back to normal. You should hold your Rosuvastatin (Crestor) until follow up with your primary care doctor. Please follow up with your primary care doctor for repeat CMP in 2 weeks Pending Studies at Discharge: No Stand-Alone Forms: My [facility], Smoking Cessation Medications and DC Order Prescriptions: New ciprofloxacin HCl 500 mg tablet 500 mg PO BID 2 Days Qty: 4 0RF Continued ketotifen fumarate 0.025 % (0.035 %) Drops 1 drp OPHTHALMIC (EYE) BID Rx Instructions: administer at least 8 hours apart glipizide 10 mg tablet 10 mg PO DAILY fluorouracil [Efudex] 5 % Cream 1 applic TOPICAL BID Rx Instructions: apply to skin cancer on thumb BID x 5 weeks (started on 11/08/22) valsartan-hydrochlorothiazide 160-12.5 mg tablet 1 tab PO DAILY Premarin 0.3 mg Tablet 0.3 mg PO DAILY escitalopram oxalate 10 mg Tablet 10 mg PO DAILY Zyrtec 10 mg Capsule 10 mg PO DAILY PRN (Reason: Allergic Symptoms) Ozempic 1 mg/dose (4 mg/3 mL) pen injector 1 mg SUBCUT WK aspirin 81 mg Capsule 81 mg PO DAILY Discontinued rosuvastatin 40 mg tablet 40 mg PO DAILY Discharge Orders: Discharge Order (Routine); Ordered 12/10/22 Ordered By: Brayan Ortez Admission Data Admit Date/Time: 12/05/22 10:45 Attending Provider: Brayan Ortez Admit Provider: Nancy Ramirez Primary Care Provider: Kaitlynn Burleson Other Providers: Shiraz Devlin ; Nancy Ramirez ; Shawn Marquez ; Ronny Rasmussen ; Terence Calhoun ; James Coronado I. ; Tariq Hicks II ; Meaghan Lacy ; Gui Rod ; Elliot Oliveira ; Naheed Jang
== END 2022-12-10 14:55 | disposition home or self-care (01) | DRG 872 ==
LOC: ED 07:19 → SUATTDRO 10:45 → 2S 10:45
DX: E87.1 Hypo-osmolality and hyponatremia; R07.89 Other chest pain; R74.01 Elevation of levels of liver transaminase levels; Z79.84 Long term (current) use of oral hypoglycemic drugs; Z79.82 Long term (current) use of aspirin; I47.20 Ventricular tachycardia, unspecified; A41.51 Sepsis due to Escherichia coli [E. coli]; E87.8 Other disorders of electrolyte and fluid balance, not elsewhere classified; D64.9 Anemia, unspecified; Z66 Do not resuscitate; E11.9 Type 2 diabetes mellitus without complications; E78.5 Hyperlipidemia, unspecified; I10 Essential (primary) hypertension; N12 Tubulo-interstitial nephritis, not specified as acute or chronic; R91.1 Solitary pulmonary nodule